=== PATIENT | male | born 1930 | race Caucasian/White ===

== ENCOUNTER 2018-01-27 07:54 | Day surgery (SDC) | payer MEDICARE, BC ==
[~2018-01-27 07:54] MED LIST: Cefuroxime 10 MG/ML SYRINGE EYERT SCH; Lidocaine 1% PF 2 ML SDV INJECT SCH; Pilocarpine 4% Ophth Soln 15 ML Bot EYERT SCH
[2018-01-27] MEDS: Polymyxin B/Trimethoprim 10 ML Bottle EYERT SCH ×3 (08:50→10:30)
[2018-01-27] MEDS: Brimonidine 0.2% Ophth Soln 5 ML Bottle EYERT SCH ×3 (08:55→10:30)
[2018-01-27] MEDS: Phenylephrine 2.5% Ophth Soln 2 ML Bot EYERT SCH ×5 (09:01→10:12)
[2018-01-27] MEDS: Tropicamide 1% Ophth Soln 3 ML Bottle EYERT SCH ×5 (09:06→09:57)
--- NOTE | 2018-01-27 09:42 | PCM.PREANE ---
Preanesthetic Assessment - Procedure Proposed Procedure: Right eye cataract extraction with IOL - Anesthesia/Transfusion/Family Hx Anesthesia History: Prior Anesthesia Without Reaction Family History of Anesthesia Reaction: No Transfusion History: No Prior Transfusion(s) - Review of Systems General: No Symptoms Pulmonary: No Symptoms Cardiovascular: Other (CABG x3, hyperlipidemia ) Gastrointestinal: No Symptoms Neurological: No Symptoms Other: Reports: Diabetes, Thyroid Problems - Physical Assessment NPO Status Date: 01/26/18 NPO Status Time: 19:00 O2 Sat by Pulse Oximetry: 97 Respiratory Rate: 16 Vital Signs: Last Vital Signs Temp 36.1 C 01/27/18 08:42 Pulse 53 L 01/27/18 08:42 Resp 16 01/27/18 08:42 BP 138/62 01/27/18 08:42 Pulse Ox 97 01/27/18 08:42 Height: 1.8 m Weight: 69.853 kg ASA Class: 3 Mental Status: Alert & Oriented x3 Airway Class: Mallampati = 2 Dentition: Reports: Missing Tooth/Teeth Thyro-Mental Finger Breadths: 3 Mouth Opening Finger Breadths: 3 ROM/Head Extension: Full Lungs: Clear to Auscultation, Normal Respiratory Effort Cardiovascular: Regular Rate, Regular Rhythm - Allergies Allergies/Adverse Reactions: Allergies Allergy/AdvReac Type Severity Reaction Status Date / Time No Known Allergies Allergy Verified 01/25/18 15:02 - Blood Blood Available: No Product(s) Available: None - Anesthesia Plan Pre-Op Medication Ordered: None - Acknowledgements Anesthesia Type Planned: MAC Pt an Appropriate Candidate for the Planned Anesthesia: Yes Alternatives and Risks of Anesthesia Discussed w Pt/Guardian: Yes Pt/Guardian Understands and Agrees with Anesthesia Plan: Yes PreAnesthesia Questionnaire - HOME MEDS Home Medications: Home Meds Aspirin [Adult Low Dose Aspirin EC] 81 mg PO DAILY 01/26/18 [History] Cetirizine [ZyrTEC] 10 mg PO DAILY 01/26/18 [History] Cholecalciferol (Vitamin D3) [Vitamin D3] 1 cap PO DAILY 01/26/18 [History] Fluticasone Propionate [Flonase] 1 spray NASBOTH ASDIRECTED 01/26/18 [History] Folic Acid 1 mg PO DAILY 01/26/18 [History] Glimepiride [Amaryl] 2 mg PO DAILY 01/26/18 [History] Ipratropium [place] 1 spray NASBOTH ASDIRECTED 01/26/18 [History] Levothyroxine 25 mcg PO DAILY 01/26/18 [History] Lisinopril 5 mg PO DAILY 01/26/18 [History] Metoclopramide HCl 5 mg PO ASDIRECTED 01/26/18 [History] Metoprolol Tartrate 25 mg PO DAILY 01/26/18 [History] Montelukast [Singulair] 10 mg PO DAILY 01/26/18 [History] Omeprazole 20 mg PO DAILY 01/26/18 [History] SitaGLIPtin [Januvia] 100 mg PO DAILY 01/26/18 [History] atorvaSTATin [Lipitor] 80 mg PO DAILY 01/26/18 [History] - CURRENT (IN HOUSE) MEDS Current Meds: Current Medications Brimonidine Tartrate (Alphagan 0.2% Oph Soln) 0 ml EYERT ASDIRECTED LIDIA Stop: 01/27/18 19:00 Last Admin: 01/27/18 08:55 Dose: 1 drop Cefuroxime Sodium (Zinacef) 0 mg EYERT ASDIRECTED LIDIA Stop: 01/27/18 19:00 Lidocaine HCl (Xylocaine-Mpf 1%) 0 ml INJECT ASDIRECTED LIDIA Stop: 01/27/18 19:00 Phenylephrine HCl (Juan Carlos-Synephrine 2.5% Oph Soln) 0 ml EYERT ASDIRECTED LIDIA Stop: 01/27/18 19:00 Last Admin: 01/27/18 09:22 Dose: 1 drop Pilocarpine HCl (Pilocar 4% Ophth Soln) 0 ml EYERT ASDIRECTED LIDIA Stop: 01/27/18 19:00 Polymyxin/Trimethoprim Sulfate (Polytrim Ophth Soln) 0 ml EYERT ASDIRECTED LIDIA Stop: 01/27/18 19:00 Last Admin: 01/27/18 08:50 Dose: 1 drop Tetracaine HCl (Tetracaine 0.5% Steri-Unit Mandy) 0 ml EYERT ASDIRECTED LIDIA Stop: 01/27/18 19:00 Tropicamide (Mydriacyl 1% Oph Soln) 0 ml EYERT ASDIRECTED LIDIA Stop: 01/27/18 19:00 Last Admin: 01/27/18 09:27 Dose: 1 drop
[2018-01-27] MEDS: Tetracaine HCl/PF 0.5% 4 ML Bottle EYERT SCH ×2 (10:07→10:17)
--- NOTE | 2018-01-27 10:36 | PCM48HPAN ---
Post Anesthesia Note - EVALUATION WITHIN 48HRS OF ANESTHETIC Vital Signs in Normal Range: Yes Patient Participated in Evaluation: Yes Respiratory Function Stable: Yes Airway Patent: Yes Cardiovascular Function Stable: Yes Hydration Status Stable: Yes Pain Control Satisfactory: Yes Nausea and Vomiting Control Satisfactory: Yes Mental Status Recovered: Yes
== END 2018-01-27 10:39 | disposition home or self-care (01) ==
LOC: JD.SDS 07:54
PROVIDERS: ATTEND Ophthalmology
DX: H25.813 Combined forms of age-related cataract, bilateral (principal); H35.363 Drusen (degenerative) of macula, bilateral; H35.3131 Nonexudative age-related macular degeneration, bilateral, early dry stage; H02.834 Dermatochalasis of left upper eyelid; H02.831 Dermatochalasis of right upper eyelid; E11.36 Type 2 diabetes mellitus with diabetic cataract; E78.00 Pure hypercholesterolemia, unspecified; E07.9 Disorder of thyroid, unspecified; Z83.518 Family history of other specified eye disorder; Z79.82 Long term (current) use of aspirin; Z79.84 Long term (current) use of oral hypoglycemic drugs; Z79.899 Other long term (current) drug therapy
CPT/HCPCS: 66984; C1780; J0697; J2001; A9270-GY

== ENCOUNTER 2018-02-24 07:00 | Day surgery (SDC) | payer MEDICARE, BC ==
[2018-02-24] MEDS: Polymyxin B/Trimethoprim 10 ML Bottle EYELF SCH ×4 (07:11→08:41)
[2018-02-24] MEDS: Brimonidine 0.2% Ophth Soln 5 ML Bottle EYELF SCH ×4 (07:19→08:41)
[2018-02-24] MEDS: Phenylephrine 2.5% Ophth Soln 2 ML Bot EYELF SCH ×6 (07:22→08:17)
--- NOTE | 2018-02-24 07:23 | PCM.PREANE ---
Preanesthetic Assessment - Anesthesia/Transfusion/Family Hx Anesthesia History: Prior Anesthesia Without Reaction Family History of Anesthesia Reaction: No Transfusion History: No Prior Transfusion(s) - Review of Systems General: No Symptoms Pulmonary: No Symptoms Cardiovascular: Other (CABGx3, HTN, increased cholesterol, pt denies any CP) Gastrointestinal: Other (hiatal hernia, no symptoms) Other: Reports: Diabetes (am glucose 126), Thyroid Problems - Physical Assessment NPO Status Date: 02/23/18 NPO Status Time: 19:00 Pulse: 56 O2 Sat by Pulse Oximetry: 97 Respiratory Rate: 16 Blood Pressure: 145/69 Weight: 154 kg ASA Class: 2 Mental Status: Alert & Oriented x3 Airway Class: Mallampati = 2 Dentition: Reports: Normal Dentition, Implants Thyro-Mental Finger Breadths: 3 Mouth Opening Finger Breadths: 3 ROM/Head Extension: Full Lungs: Clear to Auscultation, Normal Respiratory Effort Cardiovascular: Regular Rate, Regular Rhythm - Allergies Allergies/Adverse Reactions: Allergies Allergy/AdvReac Type Severity Reaction Status Date / Time No Known Allergies Allergy Verified 02/23/18 09:09 - Blood Blood Available: No Product(s) Available: None - Anesthesia Plan Beta Renetta: Metoprolol Med Last Dose Date: 02/24/18 Med Last Dose Time: 05:15 - Acknowledgements Anesthesia Type Planned: MAC Pt an Appropriate Candidate for the Planned Anesthesia: Yes Alternatives and Risks of Anesthesia Discussed w Pt/Guardian: Yes Pt/Guardian Understands and Agrees with Anesthesia Plan: Yes PreAnesthesia Questionnaire - HOME MEDS Home Medications: Home Meds Aspirin [Adult Low Dose Aspirin EC] 81 mg PO DAILY 01/26/18 [History] Cetirizine [ZyrTEC] 10 mg PO DAILY 01/26/18 [History] Cholecalciferol (Vitamin D3) [Vitamin D3] 1 cap PO DAILY 01/26/18 [History] Fluticasone Propionate [Flonase] 1 spray NASBOTH ASDIRECTED 01/26/18 [History] Folic Acid 1 mg PO DAILY 01/26/18 [History] Glimepiride [Amaryl] 4 mg PO DAILY 01/26/18 [History] Ipratropium [place] 1 spray NASBOTH ASDIRECTED 01/26/18 [History] Levothyroxine 25 mcg PO DAILY 01/26/18 [History] Lisinopril 5 mg PO DAILY 01/26/18 [History] Metoclopramide HCl 5 mg PO ASDIRECTED 01/26/18 [History] Metoprolol Tartrate 25 mg PO DAILY 01/26/18 [History] Montelukast [Singulair] 10 mg PO DAILY 01/26/18 [History] Omeprazole 20 mg PO DAILY 01/26/18 [History] SitaGLIPtin [Januvia] 100 mg PO DAILY 01/26/18 [History] atorvaSTATin [Lipitor] 80 mg PO DAILY 01/26/18 [History] Montelukast [Singulair] 10 mg PO DAILY 02/23/18 [History] - CURRENT (IN HOUSE) MEDS Current Meds: Current Medications Brimonidine Tartrate (Alphagan 0.2% Ophth Soln) 0 ml EYELF ASDIRECTED LIDIA Stop: 02/24/18 18:00 Cefuroxime Sodium (Zinacef) 0 mg EYELF ASDIRECTED LIDIA Stop: 02/24/18 18:00 Lidocaine HCl (Xylocaine-Mpf 1%) 0 ml INJECT ASDIRECTED LIDIA Stop: 02/24/18 18:00 Phenylephrine HCl (Juan Carlos-Synephrine 2.5% Ophth Soln) 0 ml EYELF ASDIRECTED LIDIA Stop: 02/24/18 18:00 Pilocarpine HCl (Pilocar 4% Ophth Soln) 0 ml EYELF ASDIRECTED LIDIA Stop: 02/24/18 18:00 Polymyxin/Trimethoprim Sulfate (Polytrim Ophth Soln) 0 ml EYELF ASDIRECTED LIDIA Stop: 02/24/18 18:00 Last Admin: 02/24/18 07:11 Dose: 1 drop Tetracaine HCl (Tetracaine 0.5% Steri-Unit Mandy) 0 ml EYELF ASDIRECTED LIDIA Stop: 02/24/18 18:00 Tropicamide (Mydriacyl 1% Ophth Soln) 0 ml EYELF ASDIRECTED LIDIA Stop: 02/24/18 18:00
[2018-02-24] MEDS: Tropicamide 1% Ophth Soln 15 ML Bottle EYELF SCH ×4 (07:25→07:53)
[2018-02-24] MEDS: Tetracaine HCl/PF 0.5% 4 ML Bottle EYELF SCH ×3 (07:48→08:29)
[2018-02-24] MEDS: Lidocaine 1% PF 2 ML SDV INJECT SCH ×2 (07:48→08:29)
[2018-02-24] MEDS: Cefuroxime 10 MG/ML SYRINGE EYELF SCH ×2 (07:48→08:40)
[2018-02-24] MEDS: Pilocarpine 4% Ophth Soln 15 ML Bot EYELF SCH ×2 (07:49→08:41)
--- NOTE | 2018-02-24 08:42 | PCM48HPAN ---
Post Anesthesia Note - EVALUATION WITHIN 48HRS OF ANESTHETIC Vital Signs in Normal Range: Yes Patient Participated in Evaluation: Yes Respiratory Function Stable: Yes Airway Patent: Yes Cardiovascular Function Stable: Yes Hydration Status Stable: Yes Pain Control Satisfactory: Yes Nausea and Vomiting Control Satisfactory: Yes Mental Status Recovered: Yes Pulse Rate: 49 SaO2: 100 Resp Rate: 16 Temperature: 36.6 C Blood Pressure: 127/62
== END 2018-02-24 08:50 | disposition home or self-care (01) ==
LOC: JD.SDS 07:00
PROVIDERS: ATTEND Ophthalmology
DX: E11.36 Type 2 diabetes mellitus with diabetic cataract (principal); H25.812 Combined forms of age-related cataract, left eye; H40.003 Preglaucoma, unspecified, bilateral; H02.831 Dermatochalasis of right upper eyelid; H02.834 Dermatochalasis of left upper eyelid; E78.00 Pure hypercholesterolemia, unspecified; E07.9 Disorder of thyroid, unspecified; Z98.41 Cataract extraction status, right eye; Z96.1 Presence of intraocular lens; Z83.518 Family history of other specified eye disorder; Z79.82 Long term (current) use of aspirin; Z79.84 Long term (current) use of oral hypoglycemic drugs; Z79.899 Other long term (current) drug therapy
CPT/HCPCS: 66984; C1780; J0697; A9270-GY; J2001